=== PATIENT | female | born 1935 | race Two or more races ===

== ENCOUNTER 2017-01-26 15:01 | Inpatient (IN) | payer MEDICARE, MEDICAID ==
[~2017-01-26] VITALS: Ht 154.9 cm; Wt 77.1 kg
[2017-01-26] MEDS ORDERED: SODIUM CHLORIDE FLUSH 10ML SYR IVF ONE (15:30)
[2017-01-26] MEDS ORDERED: PLEASE ENTER HEIGHT AND WEIGHT MC SCH (15:30)
[2017-01-26] MEDS ORDERED: PLEASE ENTER ALLERGIES MC SCH ×2 (15:30)
[2017-01-26] MEDS ORDERED: SODIUM CHLORIDE 0.9% 1,000ML IVBOLUS ONE (15:30)
[2017-01-26 15:50] LABS: HEMATOCRIT 33.6 % (34.6-47.8); HEMOGLOBIN 11.4 g/dL (11.7-16.4)
[2017-01-26 16:02] LABS: ASPARTATE AMINO TRANSFERASE 21 U/L (15-37); BLOOD UREA NITROGEN 18 mg/dL (7-18)
[2017-01-26] MEDS ORDERED: CEFTRIAXONE PMX 1GM/50ML 50 ML IV ONE (18:30)
[2017-01-26] MEDS ORDERED: LEVOFLOXACIN/PMX 750MG/150ML 150 ML IVPB SCH (19:00)
[2017-01-26] MEDS ORDERED: ONDANSETRON 2MG/ML, 2ML IVPush PRN (19:00)
[2017-01-26] MEDS ORDERED: HYDROmorphone 2 MG/ML, 1ML IVPush PRN (19:00)
[2017-01-26] MEDS ORDERED: hydrALAzine 20 MG/ML, 1ML IVPush PRN (19:00)
[2017-01-26] MEDS ORDERED: PHARMACY MAY ADJ FOR RENAL FX MC SCH (19:00)
[2017-01-26] MEDS ORDERED: HALOPERIDOL 5 MG/ML IVPush PRN (19:00)
[2017-01-26] MEDS ORDERED: CEFTRIAXONE PMX 1GM/50ML 50 ML ONE (19:06)
[2017-01-26 19:30] LABS: BLOOD UREA NITROGEN 19 mg/dL (7-18)
[2017-01-26] MEDS: SODIUM CHLORIDE 0.9% 1,000 ML IV SCH (19:50)
[2017-01-26 20:15] VITALS: BP 127/56
[2017-01-26] MEDS: ENOXAPARIN 30 MG/0.3 ML SQ SCH (21:31)
[2017-01-26] MEDS: FAMOTIDINE 20 MG/2 ML IVPush SCH (21:31)
[2017-01-27 02:04] VITALS: BP 131/74
[2017-01-27 06:04] LABS: HEMATOCRIT 35.3 % (34.6-47.8); HEMOGLOBIN 11.9 g/dL (11.7-16.4); WHITE BLOOD COUNT 9.6 x10^3/uL (3.4-10)
[2017-01-27 06:07] LABS: DIFF TOTAL CELLS COUNTED 100 CELL DIFF
[2017-01-27 06:10] LABS: VERIFY COUNTS? YES
[2017-01-27 06:11] LABS: ANISOCYTOSIS 1+; LARGE PLATELETS 1+; POLYCHROMASIA 1+
[2017-01-27 07:08] VITALS: BP 163/82
[2017-01-27] MEDS: FAMOTIDINE 20 MG/2 ML IVPush SCH ×2 (08:10→21:02)
[2017-01-27] MEDS ORDERED: CEFTRIAXONE PMX 2GM/50ML 50 ML IV SCH (09:30)
[2017-01-27] MEDS: SODIUM CHLORIDE 0.9% 1,000 ML IV SCH (10:32)
[2017-01-27 13:58] VITALS: BP 148/78
[2017-01-27 18:48] VITALS: BP 139/82
[2017-01-27] MEDS: ENOXAPARIN 30 MG/0.3 ML SQ SCH (21:02)
[2017-01-28 01:17] VITALS: BP 145/80
[2017-01-28] MEDS: SODIUM CHLORIDE 0.9% 1,000 ML IV SCH ×2 (02:42→19:44)
[2017-01-28 05:59] LABS: BLOOD UREA NITROGEN 20 mg/dL (7-18)
[2017-01-28 06:45] VITALS: BP 154/83
[2017-01-28 06:58] LABS: HEMOGLOBIN 11.8 g/dL (11.7-16.4); WHITE BLOOD COUNT 8.3 x10^3/uL (3.4-10)
[2017-01-28] MEDS: FAMOTIDINE 20 MG/2 ML IVPush SCH ×2 (08:58→19:44)
[2017-01-28] MEDS: CEFTRIAXONE 2 GM in DEXTROSE 5% 50 ML IV SCH (09:02)
[2017-01-28 14:10] VITALS: BP 154/81
[2017-01-28 19:12] VITALS: BP 144/73
[2017-01-28] MEDS: ENOXAPARIN 30 MG/0.3 ML SQ SCH (19:44)
[2017-01-29 01:44] VITALS: BP 111/72
[2017-01-29 05:19] LABS: BLOOD UREA NITROGEN 23 mg/dL (7-18)
[2017-01-29 07:55] VITALS: BP 129/79
[2017-01-29] MEDS: CEFTRIAXONE 2 GM in DEXTROSE 5% 50 ML IV SCH (10:06)
[2017-01-29] MEDS: FAMOTIDINE 20 MG/2 ML IVPush SCH ×2 (10:06→20:15)
[2017-01-29 13:47] VITALS: BP 153/85
[2017-01-29] MEDS ORDERED: FLU VACC QS2017-18 (36MOS+) UP/PF 0.5 ML IM-VACC ONE (17:00)
[2017-01-29] MEDS ORDERED: PNEUMOCOCCAL 23 VACCINE IM-VACC ONE (17:00)
[2017-01-29] MEDS: SODIUM CHLORIDE 0.9% 1,000 ML IV SCH (17:49)
[2017-01-29] MEDS: ENOXAPARIN 40 MG/0.4 ML SQ SCH (17:52)
[2017-01-29 19:12] VITALS: BP 138/61
[2017-01-30 01:29] VITALS: BP 145/85
[2017-01-30 07:58] VITALS: BP 136/79
[2017-01-30] MEDS: FAMOTIDINE 20 MG/2 ML IVPush SCH ×2 (09:21→20:58)
[2017-01-30] MEDS: CEFTRIAXONE 2 GM in DEXTROSE 5% 50 ML IV SCH (09:22)
[2017-01-30] MEDS: LACTOBACILLUS CHEW TABLET PO SCH ×3 (11:17→20:58)
[2017-01-30 13:25] VITALS: BP 143/84
[2017-01-30] MEDS: ENOXAPARIN 40 MG/0.4 ML SQ SCH (19:00)
[2017-01-30 19:25] VITALS: BP 167/71
[2017-01-30] MEDS ORDERED: CEFTRIAXONE 2 GM in SODIUM CHLORIDE 0.9% 50 ML IV SCH (20:58)
[2017-01-31 01:49] VITALS: BP 158/74
[2017-01-31] MEDS: LACTOBACILLUS CHEW TABLET PO SCH ×4 (06:12→20:21)
[2017-01-31 07:17] VITALS: BP 153/72
[2017-01-31] MEDS: FAMOTIDINE 20 MG/2 ML IVPush SCH ×2 (10:00→20:21)
[2017-01-31 13:07] VITALS: BP 153/74
[2017-01-31] MEDS: ENOXAPARIN 40 MG/0.4 ML SQ SCH (19:00)
[2017-01-31 19:35] VITALS: BP 155/78
[2017-02-01 00:57] VITALS: BP 136/75
[2017-02-01 05:00] LABS: HEMATOCRIT 30.6 % (34.6-47.8); HEMOGLOBIN 10.4 g/dL (11.7-16.4); WHITE BLOOD COUNT 7.8 x10^3/uL (3.4-10)
[2017-02-01 05:06] LABS: BLOOD UREA NITROGEN 11 mg/dL (7-18)
[2017-02-01] MEDS: LACTOBACILLUS CHEW TABLET PO SCH ×4 (06:31→22:37)
[2017-02-01 07:00] VITALS: BP 135/75
[2017-02-01] MEDS ORDERED: POTASSIUM CHLORIDE 20 MEQ TAB.ER.PRT PO ONE ×2 (07:30→09:30)
[2017-02-01] MEDS: FAMOTIDINE 20 MG/2 ML IVPush SCH ×2 (08:19→22:37)
[2017-02-01] MEDS: CEFTRIAXONE 2 GM in DEXTROSE 5% 50 ML IV SCH (08:26)
[2017-02-01] MEDS ORDERED: MAGNESIUM SULFATE PMX 4GM/100M 100 ML IV ONE (09:30)
[2017-02-01 13:46] VITALS: BP 159/83
[2017-02-01] MEDS: ENOXAPARIN 40 MG/0.4 ML SQ SCH (17:42)
[2017-02-01 19:52] VITALS: BP 128/88
[2017-02-02 01:43] VITALS: BP 129/75
[2017-02-02] MEDS: LACTOBACILLUS CHEW TABLET PO SCH ×2 (05:12→13:08)
[2017-02-02 05:41] LABS: HEMATOCRIT 29.6 % (34.6-47.8); HEMOGLOBIN 10.2 g/dL (11.7-16.4); WHITE BLOOD COUNT 7.2 x10^3/uL (3.4-10)
[2017-02-02 05:59] LABS: BLOOD UREA NITROGEN 8 mg/dL (7-18)
[2017-02-02 07:54] VITALS: BP 125/74
[2017-02-02] MEDS: FAMOTIDINE 20 MG/2 ML IVPush SCH (08:14)
[2017-02-02] MEDS: CEFTRIAXONE 2 GM in DEXTROSE 5% 50 ML IV SCH (08:43)
[2017-02-02 13:54] VITALS: BP 150/83
[2017-02-02 14:06] VITALS: BP 149/83
[2017-02-02] MEDS ORDERED: CEFD300C37 PO (14:25)
[2017-02-02] MEDS ORDERED: FAMO20TA7 PO (14:25)
== END 2017-02-02 15:28 | disposition home or self-care (01) | DRG 70 ==
LOC: ED 19:02 → EDIP 19:18 → 3NE 19:20
PROVIDERS: ADMIT Family Medicine; ATTEND Family Medicine
PROC: 0T9B70Z Drainage of Bladder with Drainage Device, Via Natural or Artificial Opening (ICD-10-PCS; principal; 2017-01-26)
DX: G93.41 Metabolic encephalopathy (principal); N17.0 Acute kidney failure with tubular necrosis; R78.81 Bacteremia; I50.30 Unspecified diastolic (congestive) heart failure; E87.1 Hypo-osmolality and hyponatremia; B96.1 Klebsiella pneumoniae [K. pneumoniae] as the cause of diseases classified elsewhere; I11.0 Hypertensive heart disease with heart failure; N30.90 Cystitis, unspecified without hematuria; E86.9 Volume depletion, unspecified; E03.9 Hypothyroidism, unspecified; R29.6 Repeated falls; R62.7 Adult failure to thrive
CPT/HCPCS: 36415; 70551; 71010; 80048; 80053; 81001; 82040; 82533; 83036; 83605; 83735; 84145; 84443; 85025; 85610; 85730; 87040; 87077; 87086; 87186; 90686; 90732; 93005; 93306; 96361; 96365; J0696; J1650; J1956; J3475; J7030; S0028

== ENCOUNTER 2017-09-21 18:00 | Emergency (ER) | payer MEDICARE, MEDICAID ==
[~2017-09-21] VITALS: Ht 152.4 cm; Wt 75.5 kg
[~2017-09-21 18:00] MED LIST: AMLO2.5T2 PO; CEFD300C37 PO; CEPH500T PO; FAMO20TA7 PO; LEVO25TA4 PO; LOSA25TA5 PO
[2017-09-21 19:15] LABS: ALANINE AMINOTRANSFERASE 46 U/L (12-78); ALBUMIN 3.7 g/dL (3.4-5.0); ANION GAP 9 mmol/L (5-15); CALCIUM 9.1 mg/dL (8.5-10.1); CHLORIDE 108 mmol/L (98-107); CREATININE 1.17 mg/dL (0.55-1.02)
[2017-09-21 19:19] LABS: ALKALINE PHOSPHATASE 56 U/L (45-117); BILIRUBIN,TOTAL 0.4 mg/dL (0.2-1.0); TOTAL PROTEIN 7.1 g/dL (6.4-8.2); TROPONIN I < 0.015 ng/mL (0.000-0.045)
[2017-09-21] MEDS ORDERED: KETOROLAC 30 MG/1 ML ONE (19:43)
[2017-09-21 19:53] VITALS: BP 150/80
[2017-09-21 19:53] LABS: BASOPHILS # (AUTO) 0.03 x10^3/uL (0-0.1); BASOPHILS % (AUTO) 1 % (0-1); EOSINOPHILS # (AUTO) 0.07 x10^3/uL (0-0.4); EOSINOPHILS % (AUTO) 1 % (1-7); LYMPHOCYTES % (AUTO) 38 % (22-44); MD NO; MEAN CORPUSCULAR HEMOGLOBIN 34.4 pg (27.0-34.8); MEAN CORPUSCULAR HGB CONC 33.9 g/dL (32.4-35.8); MEAN CORPUSCULAR VOLUME 101.2 fL (80-100); MEAN PLATELET VOLUME 12.9 fL (7.4-10.4); MONOCYTES # (AUTO) 0.43 x10^3/uL (0.2-0.8); MONOCYTES % (AUTO) 8 % (2-9); NEUTROPHILS # (AUTO) 3.02 x10^3/uL (1.8-6.8); NEUTROPHILS % (AUTO) 52 % (42-75); PLATELET COUNT 133 x10^3/uL (130-400); RED BLOOD COUNT 3.55 x10^6/uL (3.82-5.3); RED CELL DISTRIBUTION WIDTH 15.3 % (9.6-15.2)
[2017-09-21] MEDS ORDERED: KETOROLAC 30 MG/1 ML IM ONE (20:00)
== END 2017-09-21 20:26 | disposition home or self-care (01) ==
LOC: ED 19:01
DX: R07.89 Other chest pain (principal); I10 Essential (primary) hypertension; E03.9 Hypothyroidism, unspecified
CPT/HCPCS: 36415; 71045; 80053; 83880; 84484; 85025; 85379; 93005; 96372; 99285; J1885

== ENCOUNTER → 2017-12-19 | Outpatient (CLI) | payer MEDICARE, MEDICAID ==
[~2017-12-19] MED LIST changes: -LOSA25TA5 PO; +LOSA25TA6 PO
== END | disposition home or self-care (01) ==
LOC: CFH 12:41
PROVIDERS: ATTEND Family Medicine
DX: Z12.31 Encounter for screening mammogram for malignant neoplasm of breast (principal); N64.4 Mastodynia
CPT/HCPCS: 77066

== ENCOUNTER → 2019-05-14 | Outpatient (CLI) | payer MEDICARE, MEDICAID ==
[~2019-05-14] MED LIST changes: +LOSA25TA25 PO; -LOSA25TA6 PO
== END | disposition home or self-care (01) ==
LOC: LAB 08:32
PROVIDERS: ATTEND Family Medicine
DX: Z11.1 Encounter for screening for respiratory tuberculosis (principal)
CPT/HCPCS: 36415; 86480